=== PATIENT | female | born 1955 | race Caucasian/White ===

== ENCOUNTER 2020-04-23 14:18 | Outpatient (CLI) | payer BC, SELFPAY | END 2020-04-23 14:19 | disposition home or self-care (01) | LOC: CHSLAB 14:25 | PROVIDERS: Visit Provider Specialist | DX: L72.9 Follicular cyst of the skin and subcutaneous tissue, unspecified (principal) | CPT/HCPCS: 88305 ==

== ENCOUNTER 2021-04-22 14:45 | Outpatient (CLI) | payer OTHER, SELFPAY | END 2021-04-22 14:46 | disposition home or self-care (01) | PROVIDERS: PCP Specialist; Visit Provider Specialist | DX: C44.729 Squamous cell carcinoma of skin of left lower limb, including hip (principal) | CPT/HCPCS: 88305 ==

== ENCOUNTER 2022-07-21 14:13 | Outpatient (CLI) | payer MEDICARE, SELFPAY | END 2022-07-21 14:14 | disposition home or self-care (01) | PROVIDERS: PCP Family Medicine; Visit Provider Specialist | DX: C44.722 Squamous cell carcinoma of skin of right lower limb, including hip (principal) | CPT/HCPCS: 88305 ==

== ENCOUNTER 2023-03-09 14:14 | Outpatient (CLI) | payer MEDICARE, SELFPAY | END 2023-03-09 14:15 | disposition home or self-care (01) | LOC: CHSLAB 14:18 | PROVIDERS: PCP Family Medicine; Visit Provider Specialist | DX: C44.519 Basal cell carcinoma of skin of other part of trunk (principal) | CPT/HCPCS: 88305 ==